=== PATIENT | female | born 1960 | race American Indian/Alaskan Native ===

== ENCOUNTER 2018-05-18 00:45 | Emergency (ER) | payer OTHER ==
[2018-05-18] MEDS ORDERED: TYLENOL ONE (01:36)
[2018-05-18] MEDS ORDERED: TYLENOL PO ONE (01:48)
--- NOTE | 2018-05-18 03:54 | XRay Report ---
PROCEDURE: LUMBAR SPINE, 2 VIEWS TECHNIQUE: Lumbar spine radiographs, frontal and lateral views. CPT 96309 HISTORY: Back pain COMPARISONS: None . FINDINGS: Alignment: Normal . Vertebral body heights/Disk spaces: Normal . Fracture(s): None . Facets: Normal . Bone mineralization: Normal . IMPRESSION: Normal Examination . This document is electronically signed by Bon Laguna MD., May 18 2018 03:52:37 AM ET
--- NOTE | 2018-05-18 03:56 | XRay Report ---
PROCEDURE: XR SPINE CERVICAL 2-3V TECHNIQUE: Cervical spine complete, including AP, lateral, open-mouth odontoid, oblique and flexion and extension studies. HISTORY: neck pain COMPARISONS: None . FINDINGS: Prevertebral soft tissues: Normal . Alignment in neutral position: Normal . Vertebral body movement with flexion and extension: Physiologic . 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 There is degenerative narro wing of the disc spaces at C4-C5 and C5-C6. . Fracture(s): None . Neural foramina: Normal . Facets: Normal . Bone mineralization: Normal . IMPRESSION: There are no fractures or malalignments. 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 There is degenerative narrowing of the disc spaces at C4-C5 and C5-C6. . This document is electronically signed by Bon Laguna MD., May 18 2018 03:54:13 AM ET
[2018-05-18] MEDS ORDERED: FLEXERIL PO ONE (04:25)
[2018-05-18] MEDS ORDERED: TORADOL IM ONE (04:25)
[2018-05-18] MEDS ORDERED: TORADOL ONE (04:25)
[2018-05-18] MEDS ORDERED: FLEXERIL ONE (04:25)
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
[2018-05-18 05:43] VITALS: BP 138/93
== END 2018-05-18 05:42 | disposition home or self-care (01) ==
LOC: ED 00:45
DX: S16.1XXA Strain of muscle, fascia and tendon at neck level, initial encounter (principal); S39.012A Strain of muscle, fascia and tendon of lower back, initial encounter; I10 Essential (primary) hypertension; Z90.710 Acquired absence of both cervix and uterus; Z98.890 Other specified postprocedural states; V87.7XXA Person injured in collision between other specified motor vehicles (traffic), initial encounter; Y93.89 Activity, other specified; Y92.488 Other paved roadways as the place of occurrence of the external cause; Y99.8 Other external cause status
CPT/HCPCS: 72040; 72100; 96372; 99283; J1885

== ENCOUNTER 2020-09-08 17:25 | Emergency (ER) | payer SELFPAY ==
[2020-09-08 21:43] VITALS: BP 148/98
--- NOTE | 2020-09-08 21:46 | Event Note ---
ED Screening Note Date of service: 09/08/20 Time: 21:45 ED Screening Note: Patient 60-year-old female who presents with left foot pain x2 days. 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 Started having foot pain 2 days ago now unable to ambulate. Patient denies fall injury or trauma. There is no numbness tingling or myalgias. Pain is rated at 7/10. Pain is exacerbated by attempted weight bearing. Patient does have history of hypertension. This initial assessment/diagnostic orders/clinical plan/treatment(s) is/are subject to change based on patients health status, clinical progression and re- assessment by fellow clinical providers in the ED. Further treatment and workup at subsequent clinical providers discretion. Patient/guardian urged not to elope from the ED as their condition may be serious if not clinically assessed and managed. Initial orders include:
--- NOTE | 2020-09-08 22:31 | XRay Report ---
LEFT FOOT 3 VIEW(S) INDICATION / CLINICAL INFORMATION: left foot pain and swelling unable to ambulate COMPARISON: None available. FINDINGS: BONES / JOINT(S): No acute fracture or subluxation. No significant arthritis. SOFT TISSUES: Moderate soft tissue swelling. ADDITIONAL FINDINGS: None. Signer Name: Sree Nichols MD Signed: 09/08/2020 10:26 PM Workstation Name: [id number]
--- NOTE | 2020-09-09 00:52 | Emergency Department Report ---
ED Lower Extremity HPI - General Chief Complaint: Extremity Injury, Lower Stated Complaint: LEFT FOOT, LEG, ANKLE SWOLLEN Time Seen by Provider: 09/09/20 00:50 Source: patient Mode of arrival: Ambulatory Limitations: No Limitations - History of Present Illness Initial Comments: Patient 60-year-old female who presents with left foot pain x2 days. 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 Started having foot pain 2 days ago now unable to ambulate. Patient denies fall injury or trauma. There is no numbness tingling or myalgias. Pain is rated at 7/10. Pain is exacerbated by attempted weight bearing. Patient does have history of hypertension. - Related Data Home Medications Medication Instructions Recorded Confirmed Last Taken hydroCHLOROthiazide [HCTZ] 25 mg PO QDAY 10/05/15 10/05/15 Unknown Previous Rx's Medication Instructions Recorded Last Taken Type Cyclobenzaprine [Flexeril] 10 mg PO QHS PRN #10 tablet 05/18/18 Unknown Rx Ibuprofen [Ibuprofen 800] 800 mg PO Q6HR PRN #20 tablet 05/18/18 Unknown Rx Acetaminophen/Codeine [Tylenol 1 tab PO Q6H PRN #12 tab 09/09/20 Unknown Rx /Codeine # 3 tab] predniSONE [Deltasone] 40 mg PO DAILY 5 Days #10 tab 09/09/20 Unknown Rx Allergies Allergy/AdvReac Type Severity Reaction Status Date / Time No Known Allergies Allergy Unverified 10/05/15 10:53 ED Review of Systems ROS: Stated complaint: LEFT FOOT, LEG, ANKLE SWOLLEN Other details as noted in HPI Constitutional: denies: chills, fever Eyes: denies: eye pain, eye discharge, vision change ENT: denies: ear pain, throat pain Respiratory: denies: cough, shortness of breath, wheezing Cardiovascular: denies: chest pain, palpitations Endocrine: no symptoms reported Gastrointestinal: denies: abdominal pain, nausea, diarrhea Genitourinary: as per HPI Musculoskeletal: joint swelling (left ankle) Skin: denies: rash, lesions Neurological: denies: headache, weakness, paresthesias Psychiatric: denies: anxiety, depression Hematological/Lymphatic: denies: easy bleeding, easy bruising ED Past Medical Hx - Past Medical History Hx Hypertension: Yes Hx Congestive Heart Failure: No Hx Diabetes: No Hx Asthma: No Hx COPD: No Hx HIV: No - Surgical History Additional Surgical History: Hysterectomy, Bilateral Cataract Removal - Social History Smoking Status: Never Smoker Substance Use Type: None - Medications Home Medications: Home Medications Medication Instructions Recorded Confirmed Last Taken Type hydroCHLOROthiazide [HCTZ] 25 mg PO QDAY 10/05/15 10/05/15 Unknown History Cyclobenzaprine [Flexeril] 10 mg PO QHS PRN #10 tablet 05/18/18 Unknown Rx Ibuprofen [Ibuprofen 800] 800 mg PO Q6HR PRN #20 tablet 05/18/18 Unknown Rx Acetaminophen/Codeine [Tylenol 1 tab PO Q6H PRN #12 tab 09/09/20 Unknown Rx /Codeine # 3 tab] predniSONE [Deltasone] 40 mg PO DAILY 5 Days #10 tab 09/09/20 Unknown Rx ED Physical Exam - General Limitations: No Limitations General appearance: alert, in no apparent distress - Head Head exam: Present: atraumatic, normocephalic - Eye Eye exam: Present: normal appearance, EOMI Pupils: Present: normal accommodation - ENT ENT exam: Present: mucous membranes moist - Neck Neck exam: Present: normal inspection, full ROM. Absent: tenderness - Respiratory Respiratory exam: Present: normal lung sounds bilaterally. Absent: wheezes - Cardiovascular Cardiovascular Exam: Present: regular rate, normal rhythm, normal heart sounds. Absent: systolic murmur, diastolic murmur, rubs, gallop - GI/Abdominal GI/Abdominal exam: Present: soft, normal bowel sounds. Absent: distended, tenderness - Rectal Rectal exam: Present: deferred - Extremities Exam Extremities exam: Present: normal inspection, full ROM, normal capillary refill - Expanded Lower Extremity Exam Left Ankle exam: Present: full ROM, tenderness, swelling. Absent: abrasion, laceration, ecchymosis, deformity, crepidus, dislocation, erythema, anterior draw sign Foot/Toe exam: Present: full ROM, tenderness, swelling. Absent: abrasion, laceration, ecchymosis, deformity, crepidus, dislocation, erythema, amputation, puncture wound, foreign body, calcaneal tenderness, nail avulsion Neuro vascular tendon exam: Absent: pulse deficit, motor deficit, sensory deficit, tendon deficit Gait: Positive: observed and limited by pain - Back Exam Back exam: Present: normal inspection, full ROM. Absent: vertebral tenderness - Neurological Exam Neurological exam: Present: alert, oriented X3, CN II-XII intact, abnormal gait (partial weight bearing ), reflexes normal. Absent: motor sensory deficit - Expanded Neurological Exam Expanded Patient oriented to: Present: person, place, time Speech: Present: fluid speech Motor strength exam: RLE: 5, LLE: 5 DTR: ankle (R): 2+, ankle (L): 2+ Best Eye Response ([place]): (4) open spontaneously Best Motor Response (Dusty): (6) obeys commands Best Verbal Response (Dusty): (5) oriented Dusty Total: 15 - Psychiatric Psychiatric exam: Present: normal affect, normal mood - Skin Skin exam: Present: warm, dry, intact, normal color. Absent: rash ED Course Vital Signs 09/08/20 21:40 Temperature 98.2 F Pulse Rate 88 Respiratory 16 Rate Blood Pressure 148/98 [Left] O2 Sat by Pulse 98 Oximetry ED Lower Extremity MDM - Radiology Data Radiology results: report reviewed, image reviewed Fluoro Time In Minutes: LEFT FOOT 3 VIEW(S) INDICATION / CLINICAL INFORMATION: left foot pain and swelling unable to ambulate COMPARISON: None available. FINDINGS: BONES / JOINT(S): No acute fracture or subluxation. No significant arthritis. SOFT TISSUES: Moderate soft tissue swelling. ADDITIONAL FINDINGS: None. Signer Name: Sree Varghese MD Signed: 09/08/2020 10:26 PM Workstation Name: [id number] Transcribed By: SB Dictated By: SREE VARGHESE MD Electronically Authenticated By: SREE VARGHESE MD Signed Date/Time: 09/08/202225 DD/ 25 TD/TT: - Medical Decision Making X-ray left foot and ankle no fracture moderate soft tissue swelling, distal pulses intact [employer] less than 3 seconds dorsal and plantar flexion intact without restraint. Negative Mayfield's test, mild pain with rotation. Patient is partial weightbearing. Plan Robbie wrap, crutches, rice therapy, NSAIDs as needed pain, follow-up primary care doctor in 3 to 4 days. Patient verbalized agreement and understanding discharge plan. Patient DC'd home in stable conditi on at this time. Critical care attestation.: If time is entered above; I have spent that time in minutes in the direct care of this critically ill patient, excluding procedure time. ED Disposition Clinical Impression: Foot sprain Qualifiers: Encounter type: initial encounter Laterality: left Qualified Code(s): S93.602A - Unspecified sprain of left foot, initial encounter Disposition: TO HOME OR SELFCARE Is pt being admited?: No Does the pt Need Aspirin: No Condition: Stable Instructions: Elastic Bandage and RICE Therapy, Foot Sprain Additional Instructions: Take medications as prescribed, follow-up primary care doctor in 3 to 4 days. Return to emergency room should symptoms worsen. Prescriptions: predniSONE [Deltasone] 40 mg PO DAILY 5 Days #10 tab Acetaminophen/Codeine [Tylenol /Codeine # 3 tab] 1 tab PO Q6H PRN #12 tab PRN Reason: Pain Referrals: RIANNA MCGINNIS MD [Primary Care Provider] - 3-5 Days
[2020-09-09] MEDS ORDERED: ACETAMINOPHEN W/CODEINE 300-30 MG TAB PO ONE (01:48)
== END 2020-09-09 02:30 | disposition home or self-care (01) ==
LOC: ED 17:25
DX: S93.602A Unspecified sprain of left foot, initial encounter (principal); I10 Essential (primary) hypertension; Z79.899 Other long term (current) drug therapy; Z90.710 Acquired absence of both cervix and uterus; Z98.890 Other specified postprocedural states; X58.XXXA Exposure to other specified factors, initial encounter; Y93.89 Activity, other specified; Y92.89 Other specified places as the place of occurrence of the external cause; Y99.8 Other external cause status